=== PATIENT | female | born 1995 | race Caucasian/White ===

== ENCOUNTER 2023-02-12 08:25 | Emergency (ER) | payer OTHER, SELFPAY ==
--- NOTE | ~2023-02-12 | XR_ITS ---
EXAMINATION: XR hand RT min 3V INDICATION: Right hand pain TECHNIQUE: Three views of the right hand are obtained. COMPARISON: None available FINDINGS: There is a subtle transverse lucency in proximal shaft of the fourth metacarpal. Bone align ment is normal. The joint spaces are unremarkable. IMPRESSION: 1. Possible nondisplaced fracture of the fourth metacarpal shaft. Reviewed, dictated and finalized at location A.
[2023-02-12 08:34] VITALS: BP 125/70; PULSE 87; RESP 14; TEMP 37; O2SAT 100
--- NOTE | 2023-02-12 08:43 | ED.UPPEXIN ---
HPI - Extremity Injury (Upper) General Chief Complaint: Extremity Injury, Upper Stated Complaint: right hand injury Time Seen by Provider: 02/12/23 08:44 History of Present Illness HPI narrative: Patient presents wit an injury to right hand patient punched a wall due to not getting a job that she wanted. presents with slight swelling to right hand no deformity pain with movement no numbness or tingling. Related Data Home Medications Medication Instructions Recorded Confirmed BuSpar 02/12/23 gabapentin 02/12/23 lamotrigine 02/12/23 paroxetine HCl 02/12/23 Allergies Allergy/AdvReac Type Severity Reaction Status Date / Time No Known Allergies Allergy Verified 02/12/23 08:40 Review of Systems Review of Systems: CONSTITUTIONAL: Denies fever, chills, or sweats. EYES: Denies visual changes, redness, or discharge. ENT: Denies rhinorrhea, congestion, sore throat, or otalgia. CARDIOVASCULAR: Denies chest pain, palpitations, or edema. RESPIRATORY: Denies cough or dyspnea. GASTROINTESTINAL: Denies abdominal pain, nausea, vomiting, or diarrhea. GENITOURINARY: Denies dysuria or hematuria. SKIN: Denies rash or itching. MUSCULOSKELETAL: Denies back pain, joint pain, or myalgia. NEUROLOGIC: Denies headache, numbness, or weakness. PSYCHIATRIC: Denies anxiety or depression. PMFSH Comments At time of signature, agree with nursing past medical, surgical, social and family history. There is no relevant family history pertinent to the presenting complaint Exam Narrative: GENERAL: Well-appearing, well-nourished, and in no acute distress. HEAD: Normocephalic, atraumatic. EYES: PERRLA and EOMI. ENT: Nares clear, no rhinorrhea or epistaxis. Mucous membranes moist. NECK: Supple. CHEST: Clear to auscultation. No respiratory distress. HEART: Regular rate and rhythm. No murmur heard. Normal peripheral pulses. ABDOMEN: Soft, nontender, nondistended, normal active bowel sounds. EXTREMITIES: Normal range of motion. No edema. HAND EXAM - Skin intact, no laceration, no swelling, no erythema, normal digit cascade with flexion of fingers, median nerve, ulnar nerve, radial nerve is intact. Normal sensation of each side of each finger, can perform `ok? sign, `cross over finger test of index and middle fingers? and `thumbs up? sign, normal thumb opposition, no scissoring. good capillary refill and radial pulse. normal flexion and extension of fingers and wrist. normal supination at wrist. Normal forearm and elbow exam. bruising to base of 4th finger right hand. SKIN: Warm, dry, no rash. NEURO: No focal deficits. Alert and oriented x3. Shala Coma Scale Eye Opening: Spontaneous 4 Roland Coma Scale Motor: Obeys Commands 6 Shala Coma Scale Verbal: Oriented 5 Roland Coma Scale Total 15 Course Course Level of Care: Express Care Visit Vital Signs Vital signs: Vital Signs Temperature 37.0 C 02/12/23 08:34 Pulse Rate 87 02/12/23 08:34 Respiratory Rate 14 02/12/23 08:34 Blood Pressure 125/70 02/12/23 08:34 Pulse Oximetry 100 02/12/23 08:34 Oxygen Delivery Room Air 02/12/23 08:34 Temperature 37.0 C 02/12/23 08:34 Pulse Rate 87 02/12/23 08:34 Respiratory Rate 14 02/12/23 08:34 Blood Pressure 125/70 02/12/23 08:34 Pulse Oximetry 100 02/12/23 08:34 Oxygen Delivery Room Air 02/12/23 08:34 Splint placed to right hand per tech re-evaluation neurovascularly intact after splint application MDM - Extremity Injury (Upper) Differential Diagnosis Differential diagnosis: Likely sprain and strain of wrist, fracture of wrist, finger sprain, dislocation of finger, Colles' fracture, fracture of hand, dislocation of shoulder, fracture of humerus and fracture of clavicle Imaging Data Radiologist's impression: ?Possible nondisplaced fracture of the fourth metacarpal shaft. Discharge Plan Discharge Clinical Impression: Fracture, metacarpal, Fracture of hand Patient Disposition: Home, Self-Care
== END 2023-02-12 09:43 | disposition home or self-care (01) ==
PROVIDERS: Emergency Provider Nurse Practitioner Family
DX: S62.324A Displaced fracture of shaft of fourth metacarpal bone, right hand, initial encounter for closed fracture (principal); W22.09XA Striking against other stationary object, initial encounter
CPT/HCPCS: 29125; 73130; 99214; A4565; G0463